=== PATIENT | male | born 1945 | race Caucasian/White ===

== ENCOUNTER 2017-01-29 14:38 | Emergency (ER) | payer OTHER, BC ==
--- NOTE | 2017-01-29 15:06 | ER Document Report ---
ED Medical Screen (RME) - General Chief Complaint: Chest Pain Stated Complaint: CHEST PAIN Time Seen by Provider: 01/29/17 14:58 TRAVEL OUTSIDE OF THE [place] IN LAST 30 DAYS: No - HPI Patient complains to provider of: Left sided chest and neck pain Onset: Last week Onset/Duration: Intermittent Quality of pain: Achy Severity: Moderate Pain Level: 3 Exacerbated by: Food Notes: 01/29/17 15:05 Patient is a 71-year-old male who has a history of hypertension and high cholesterol, who presents to the emergency room complaining of left-sided chest and neck pain that seems to worsen after he eats something, this is been going on for the past week intermittently with waxing and waning symptoms, he denies any shortness of breath, no nausea, vomiting or diarrhea - Related Data Allergies/Adverse Reactions: lidocaine Allergy (Verified 01/29/17 14:52) Past Medical History Renal/ Medical History: Denies: Hx Peritoneal Dialysis Physical Exam - Vital signs Vitals: Temp Pulse Resp BP Pulse Ox 98.0 F 103 H 16 194/91 H 95 01/29/17 14:54 01/29/17 14:54 01/29/17 14:54 01/29/17 14:54 01/29/17 14:54 Course - Vital Signs Vital signs: Temp Pulse Resp BP Pulse Ox 98.0 F 103 H 16 194/91 H 95 01/29/17 14:54 01/29/17 14:54 01/29/17 14:54 01/29/17 14:54 01/29/17 14:54
[2017-01-29 15:51] LABS: ABSOLUTE EOSINOPHILS # (AUTO) 0.2 10^3/uL (0.0-0.6); ABSOLUTE LYMPHOCYTES (AUTO) 1.8 10^3/uL (0.5-4.7); ABSOLUTE MONOCYTES (AUTO) 0.6 10^3/uL (0.1-1.4); ABSOLUTE NEUT (AUTO) 4.9 10^3/uL (1.7-8.2); BASOPHILS % (AUTO) 0.3 % (0-2); EOSINOPHILS % (AUTO) 2.1 % (0-6); HEMATOCRIT 47.5 % (37.9-51.0); HEMOGLOBIN 16.2 g/dL (13.5-17.0); HGB HCT DIFFERENCE 1.1; LYMPHOCYTES % (AUTO) 24.1 % (13-45); MEAN CORPUSCULAR HEMOGLOBIN 30.7 pg (27.0-33.4); MEAN CORPUSCULAR HGB CONC 34.1 g/dL (32.0-36.0); MEAN CORPUSCULAR VOLUME 90 fl (80-97); MONOCYTES % (AUTO) 7.5 % (3-13); RED BLOOD COUNT 5.27 10^6/uL (4.35-5.55); RED CELL DISTRIBUTION WIDTH 13.5 % (11.5-14.0); WHITE BLOOD COUNT 7.5 10^3/uL (4.0-10.5)
--- NOTE | 2017-01-29 15:55 | RADIOLOGY REPORT (SQ) ---
EXAM DESCRIPTION: CHEST PA/LAT COMPLETED DATE/TIME: 01/29/2017 3:41 pm REASON FOR STUDY: cp COMPARISON: None. EXAM PARAMETERS: NUMBER OF VIEWS: two views TECHNIQUE: Digital Frontal and Lateral radiographic views of the chest acquired. RADIATION DOSE: NA LIMITATIONS: none FINDINGS: LUNGS AND PLEURA: No opacities, masses or pneumothorax. No pleural effusion. MEDIASTINUM AND HILAR STRUCTURES: No masses or contour abnormalities. HEART AND VASCULAR STRUCTURES: Heart normal size. No evidence for failure. BONES: No acute findings. HARDWARE: None in the chest. OTHER: No other significant finding. IMPRESSION: NO ACUTE RADIOGRAPHIC FINDING IN THE CHEST. TECHNICAL DOCUMENTATION: JOB ID: [id number] [employer]- All Rights Reserved
[2017-01-29 16:00] LABS: ALANINE AMINOTRANSFERASE 54 U/L (21-72); ALBUMIN 4.9 g/dL (3.5-5.0); ALKALINE PHOSPHATASE 66 U/L (38-126); ANION GAP 17 (5-19); ASPARTATE AMINO TRANSFERASE 26 U/L (17-59); BILIRUBIN,DIRECT 0.3 mg/dL (0.0-0.4); BILIRUBIN,TOTAL 0.8 mg/dL (0.2-1.3); BLOOD UREA NITROGEN 15 mg/dL (7-20); CALCIUM 9.3 mg/dL (8.4-10.2); CARBON DIOXIDE 25 mmol/L (22-30); CHLORIDE 99 mmol/L (98-107); CREATINE KINASE 102 U/L (55-170); CREATININE RESULT 0.85 mg/dL (0.52-1.25); GLUCOSE 239 mg/dL (75-110); LIPASE 81.1 U/L (23-300); POTASSIUM 3.9 mmol/L (3.6-5.0); SODIUM 141.3 mmol/L (137-145)
[2017-01-29 16:12] LABS: CREATINE KINASE MB 2.08 ng/mL (<4.55)
[2017-01-29 16:14] LABS: TROPONIN I 0.106 ng/mL
[2017-01-29] MEDS ORDERED: ASPIRIN 81 MG TABLET, CHEWABLE PO ONE (16:32)
--- NOTE | 2017-01-29 16:48 | ER Document Report ---
ED Cardiac - General Mode of Arrival: Ambulatory Information source: Patient TRAVEL OUTSIDE OF THE [place] IN LAST 30 DAYS: No - HPI Similar symptoms previously: No Recently seen / treated by doctor: No <IRAJ CLEMONS - Last Filed: 01/29/17 17:10> <SHAKA PERDUE - Last Filed: 01/29/17 21:22> - General Chief Complaint: Chest Pain Stated Complaint: CHEST PAIN Time Seen by Provider: 01/29/17 14:58 Notes: Patient is a 71 year old male presenting to the ED for left sided chest pain, neck pain and shoulder pain. Patient states he has had this pain intermittently over the last week and states his episode today started around 13:00. Patient denies any shortness of breath, nausea, vomiting, or diarrhea. Patient states his pain gets worse with eating. Patient also states he has had some weakness. Patient has a history of arrythmia at age 36, hypertension, and hypercholesterolemia. Patient is allergic to lidocaine. Patient's primary care physician is Dr. Baez. Patient's movie shot cameraman is Dr. Keys. (IRAJ CLEMONS) - Related Data Allergies/Adverse Reactions: lidocaine Allergy (Verified 01/29/17 14:52) Home Medications: Current Home Medications Amlodipine Besylate 5 mg PO DAILY 01/29/17 [History] Irbesartan/Hydrochlorothiazide [Irbesartan-Hctz 300-12.5 mg Tb] 1 each PO DAILY 01/29/17 [History] Pravastatin Sodium 20 mg PO DAILY 01/29/17 [History] Past Medical History - General Information source: Patient - Social History Smoking Status: Former Smoker Chew tobacco use (# tins/day): No Frequency of alcohol use: None Drug Abuse: None Family History: None Patient has suicidal ideation: No Patient has homicidal ideation: No - Past Medical History Cardiac Medical History: Reports: Hx Hypercholesterolemia, Hx Hypertension Surgical Hx: Negative <IRAJ CLEMONS - Last Filed: 01/29/17 17:10> Review of Systems - Review of Systems Constitutional: No symptoms reported EENT: No symptoms reported Cardiovascular: See HPI, Chest pain Respiratory: No symptoms reported Gastrointestinal: No symptoms reported Genitourinary: No symptoms reported Male Genitourinary: No symptoms reported Musculoskeletal: See HPI Skin: No symptoms reported Hematologic/Lymphatic: No symptoms reported Neurological/Psychological: No symptoms reported -: Yes All other systems reviewed and negative <IRAJ CLEMONS - Last Filed: 01/29/17 17:10> Physical Exam - Vital signs Interpretation: Hypertensive, Tachycardic <IRAJ CLEMONS - Last Filed: 01/29/17 17:10> <SHAKA PERDUE - Last Filed: 01/29/17 21:22> - Vital signs Vitals: Temp Pulse Resp BP Pulse Ox 98.0 F 103 H 16 194/91 H 95 01/29/17 14:54 01/29/17 14:54 01/29/17 14:54 01/29/17 14:54 01/29/17 14:54 - Notes Notes: GENERAL: Alert, interacts well, hypertensive. Mild distress. HEAD: Normocephalic, atraumatic. EYES: Appear normal. Pupils equal, round, and reactive to light. ENT: Moist mucus membranes, tongue midline. NECK: Full range of motion. Supple. Trachea midline. LUNGS: Clear to auscultation bilaterally, no wheezes, rales, or rhonchi. No respiratory distress. HEART: Regular chen and rhythm. No murmurs, gallops, or rubs. ABDOMEN: Soft, non-tender. Non-distended. Normal bowel sounds. EXTREMITIES: Moves all 4 extremities spontaneously. Normal strength. No edema. NEUROLOGICAL: Alert and oriented x3. Normal speech. No focal neurological deficits. GSC 15. PSYCH: Normal affect, anxious. SKIN: Warm, dry, normal turgor. No rashes or lesions noted. (ROBERTIRAJ GASPAR) Course - Laboratory Result Diagrams: 01/29/17 15:21 01/29/17 15:21 <IRAJ CLEMONS - Last Filed: 01/29/17 17:10> - Laboratory Result Diagrams: 01/29/17 15:21 01/29/17 15:21 - Diagnostic Test Radiology reviewed: Image reviewed, Reports reviewed - Chest x-ray does not show any acute finding - EKG Interpretation by Ak EKG shows normal: Sinus rhythm, [place], Intervals, QRS Complexes. abnormal: ST-T Waves - ST depression suggests posterior infarct Rate: Tachycardia - 100 - Consults Dr. Lyons Time consulted: 19:25 Consulted provider: other - Will accept in transfer at [facility]. <SHAKA PERDUE - Last Filed: 01/29/17 21:22> - Re-evaluation Re-evalutation: 01/29/17 17:25 The patient was given 1 sublingual nitroglycerin at 1652, did not seem to make much difference, is given a second 1 about 1700, it also did not seem to help much. First dose of Lopressor 5 mg IV helped a little bit, the second dose of Lopressor 5 mg IV seem to have completely relieved the severe aching in his neck that he was feeling. 01/29/17 19:35 The patient continues to be pain-free. He has been accepted at [facility] by Dr. Lyons. His blood glucose was elevated to 239, a hemoglobin A1c was done a reading of 7.7 showing that the patient does additionally have diabetes. 01/29/17 21:22 Transport is here for the patient. His vital signs are stable. He is pain- free. He is smiling and laughing with his family at this time. He is again thanking me for all we did for him to help relieve his discomfort. (SHAKA PERDUE) - Vital Signs Vital signs: Temp Pulse Resp BP Pulse Ox 98.0 F 103 H 11 L 160/96 H 96 01/29/17 14:54 01/29/17 14:54 01/29/17 21:10 01/29/17 21:10 01/29/17 21:10 - Laboratory Laboratory results interpreted by me: 01/29/17 01/29/17 01/29/17 15:21 15:21 15:21 Plt Count 146 L Glucose 239 H Hemoglobin A1c % 7.7 H Urine Protein Urine Glucose (UA) Urine Ascorbic Acid 01/29/17 18:05 Plt Count Glucose Hemoglobin A1c % Urine Protein 100 H Urine Glucose (UA) 50 H Urine Ascorbic Acid 20 H Critical Care Note - Critical Care Note Total time excluding time spent on procedures (mins): 45 <SHAKA PERDUE - Last Filed: 01/29/17 21:22> Discharge <IRAJ CLEMONS - Last Filed: 01/29/17 17:10> <SHAKA PERDUE - Last Filed: 01/29/17 21:22> - Discharge Clinical Impression: Non-STEMI (non-ST elevated myocardial infarction) Hypertension Qualifiers: Hypertension type: essential hypertension Qualified Code(s): I10 - Essential ( primary) hypertension Diabetes Qualifiers: Diabetes mellitus type: type 2 Diabetes mellitus complication status: without complication Diabetes mellitus usp insulin use: without usp use Qualified Code(s): E11.9 - Type 2 diabetes mellitus without complications Condition: Good Disposition: JULIO MARTINEZ Kevin Attestation: 01/29/17 18:30 I personally performed the services described in the documentation, reviewed and edited the documentation which was dictated to the scribe in my presence, and it accurately records my words and actions. (SHAKA PERDUE) Scribe Documentation - Scribe Written by Kevin:: Kevin Lujan 01/29/2017 17:17 acting as scribe for :: Gary <IRAJ CLEMONS - Last Filed: 01/29/17 17:10>
[2017-01-29] MEDS ORDERED: METOPROLOL TARTRATE PF/INJ 5 MG/5 ML SDV IV ONE ×4 (16:54→17:26)
[2017-01-29] MEDS ORDERED: NORMAL SALINE 1000 ML 1,000 ML IV ONE (16:54)
[2017-01-29] MEDS ORDERED: NITROGLYCERIN 2% OINTMENT 1 GM PACKET TP ONE (17:21)
[2017-01-29] MEDS ORDERED: CLOPIDOGREL BISULFATE 300 MG TABLET PO ONE (17:23)
[2017-01-29] MEDS ORDERED: HEPARIN SOD (PORCINE) 1,000 UNIT/ML 10 ML VIAL IV PRN (17:24)
[2017-01-29] MEDS ORDERED: HEPARIN SODIUM,PORCINE/D5W 250 ML IV PRN (17:24)
[2017-01-29] MEDS ORDERED: HEPARIN SOD (PORCINE) 1,000 UNIT/ML 10 ML VIAL IV ONE (17:24)
[2017-01-29] MEDS ORDERED: ATORVASTATIN CALCIUM 80 MG TABLET PO ONE (17:28)
[2017-01-29 18:17] LABS: PROTHROMBIN TIME 12.8 SEC (11.4-15.4)
[2017-01-29 18:18] LABS: PARTIAL THROMBOPLASTIN TIME 28.1 SEC (23.5-35.8)
[2017-01-29 18:47] LABS: APPEARANCE,URINE CLEAR; BILIRUBIN,URINE NEGATIVE (NEGATIVE); GLUCOSE, URINE 50 mg/dL (NEGATIVE); KETONES,URINE NEGATIVE (NEGATIVE); LEUKOCYTE ESTERASE,URINE NEGATIVE (NEGATIVE); NITRITE,URINE NEGATIVE (NEGATIVE); PROTEIN,URINE 100 mg/dL (NEGATIVE); URINE SPECIFIC GRAVITY 1.017; UROBILINOGEN,URINE NEGATIVE mg/dL (<2.0)
[2017-01-29] MEDS ORDERED: METOPROLOL TARTRATE 50 MG TABLET PO ONE (18:57)
[2017-01-29 21:18] VITALS: BP 160/96
--- NOTE | 2017-01-30 03:38 | EKG REPORT ---
SEVERITY:- NORMAL ECG - SINUS RHYTHM : Confirmed by: Rocio Vines MD 30-Jan-2017 03:37:07
--- NOTE | 2017-01-30 03:38 | EKG REPORT ---
SEVERITY:- NORMAL ECG - SINUS TACHYCARDIA : Confirmed by: Rocio Vines MD 30-Jan-2017 03:37:29
== END 2017-01-29 21:43 | disposition short-term general hospital (02) ==
LOC: ER 14:38
DX: I21.4 Non-ST elevation (NSTEMI) myocardial infarction (principal); I10 Essential (primary) hypertension; E11.65 Type 2 diabetes mellitus with hyperglycemia; R07.9 Chest pain, unspecified; M54.2 Cervicalgia; M25.519 Pain in unspecified shoulder; R53.1 Weakness; Z88.4 Allergy status to anesthetic agent; Z87.891 Personal history of nicotine dependence
CPT/HCPCS: 93005; 96376; 99291; 96374; 96375; 36415; 82553; 82550; 83690; 85025; 85610; 85730; 80053; 81001; 84484; 83036; 71020; 93010; J3490 ×2; J1644 ×2; J7030

== ENCOUNTER 2019-02-09 09:47 | Emergency (ER) | payer OTHER, BC ==
[2019-02-09] MEDS ORDERED: LIDOCAINE 1% INJ-PF (10 MG/ML) 30 ML SDV INJ ONE (10:05)
--- NOTE | 2019-02-09 10:12 | ER Document Report ---
ED Medical Screen (RME) - General Chief Complaint: Laceration Stated Complaint: FINGER LACERATION Time Seen by Provider: 02/09/19 09:59 Notes: Patient is a 73-year-old male who presents to the emergency department with a laceration to his left thumb. He was working with a chop saw about 30 minutes ago and his finger got caught by the chop saw. The patient is right-handed. He is currently on Plavix. Exam: Avulsion/laceration to patient's left thumb/finger nail. I have greeted and performed a rapid initial assessment of this patient. A comprehensive ED assessment and evaluation of the patient, analysis of test results and completion of medical decision making process will be conducted by an additional ED providers. TRAVEL OUTSIDE OF THE [place] IN LAST 30 DAYS: No - Related Data Allergies/Adverse Reactions: lidocaine Allergy (Verified 02/09/19 09:54) Past Medical History - Social History Frequency of alcohol use: None Drug Abuse: None - Past Medical History Cardiac Medical History: Reports: Hx Congestive Heart Failure, Hx Heart Attack, Hx Hypercholesterolemia, Hx Hypertension Renal/ Medical History: Denies: Hx Peritoneal Dialysis Musculoskeltal Medical History: Reports Hx Arthritis Past Surgical History: Reports: Hx Cardiac Catheterization, Hx Cholecystectomy Physical Exam - Vital signs Vitals: Temp Pulse Resp BP Pulse Ox 98.1 F 97 20 135/76 H 95 02/09/19 09:52 02/09/19 09:52 02/09/19 09:52 02/09/19 09:52 02/09/19 09:52 Course - Vital Signs Vital signs: Temp Pulse Resp BP Pulse Ox 98.1 F 97 20 135/76 H 95 02/09/19 09:52 02/09/19 09:52 02/09/19 09:52 02/09/19 09:52 02/09/19 09:52
[2019-02-09] MEDS ORDERED: DIPH/PERTUSS(ACELL)/TETANUS VAC/PF 0.5 ML SYR (>=10YO) IM ONE (10:27)
--- NOTE | 2019-02-09 10:37 | RADIOLOGY REPORT (SQ) ---
EXAM DESCRIPTION: FINGER LEFT COMPLETED DATE/TIME: 02/09/2019 10:26 am REASON FOR STUDY: laceration COMPARISON: None. EXAM PARAMETERS: NUMBER OF VIEWS: Three views. TECHNIQUE: AP, lateral and oblique radiographic images acquired of the left hand. LIMITATIONS: None. FINDINGS: MINERALIZATION: Normal. BONES: No acute fracture or dislocation. Severe arthrosis in the 1st carpometacarpal joint. JOINTS: No effusion. SOFT TISSUES: Moderate soft tissue swelling. No radiopaque foreign body. OTHER: No other significant finding. IMPRESSION: NO FRACTURE. TECHNICAL DOCUMENTATION: JOB ID: [id number] [employer]- All Rights Reserved Reading location - IP/workstation name: [email or web address]
--- NOTE | 2019-02-09 10:38 | ER Document Report ---
ED General - General Chief Complaint: Laceration Stated Complaint: FINGER LACERATION Time Seen by Provider: 02/09/19 09:59 TRAVEL OUTSIDE OF THE [place] IN LAST 30 DAYS: No - HPI Notes: Patient is a 73-year-old male who presents to the emergency department for evaluation after sustaining an injury to his left thumb. He is right-hand dominant. He is using a chop saw, personally 30 minutes prior to arrival, when he cut his left thumb. He is unsure as to when his last tetanus shot was. He describes a throbbing and aching pain that he currently rates at a 3 out of 5. - Related Data Allergies/Adverse Reactions: lidocaine Allergy (Verified 02/09/19 09:54) Past Medical History - General Information source: Patient - Social History Smoking Status: Never Smoker Frequency of alcohol use: None Drug Abuse: None Family History: None, Reviewed & Not Pertinent Patient has suicidal ideation: No Patient has homicidal ideation: No - Past Medical History Cardiac Medical History: Reports: Hx Congestive Heart Failure, Hx Coronary Artery Disease, Hx Heart Attack, Hx Hypercholesterolemia, Hx Hypertension Renal/ Medical History: Denies: Hx Peritoneal Dialysis Musculoskeletal Medical History: Reports Hx Arthritis Past Surgical History: Reports: Hx Cardiac Catheterization, Hx Cholecystectomy Review of Systems - Review of Systems Constitutional: No symptoms reported EENT: No symptoms reported Cardiovascular: No symptoms reported Respiratory: No symptoms reported Gastrointestinal: No symptoms reported Genitourinary: No symptoms reported Musculoskeletal: No symptoms reported Skin: See HPI Neurological/Psychological: No symptoms reported Physical Exam - Vital signs Vitals: Temp Pulse Resp BP Pulse Ox 98.1 F 97 20 135/76 H 95 02/09/19 09:52 02/09/19 09:52 02/09/19 09:52 02/09/19 09:52 02/09/19 09:52 - Notes Notes: Is a very pleasant 73-year-old gentleman appears his stated age in no acute distress. Physical exam is limited to the area of chief complaint. Examination of the left upper extremity yields extensive 5 cm laceration that begins proximal to the nailbed and wraps around the radial aspect of the thumb to the palmar aspect. He has full range of motion at the MCP and IP. Sensation intact to the distal tip. Course - Re-evaluation Re-evalutation: 02/09/19 10:36 Patient presents emergency department for evaluation. His tetanus is updated. X-ray is ordered. No clear fracture, awaiting radiology read. Will perform digital block, then thorough cleansing and closing of the wound. - Vital Signs Vital signs: Temp Pulse Resp BP Pulse Ox 98.3 F 77 16 115/68 97 02/09/19 12:08 02/09/19 12:08 02/09/19 12:08 02/09/19 12:08 02/09/19 12:08 Procedures - Laceration/Wound Repair Left Thumb Time completed: 11:20 Wound length (cm): 5 Wound's Depth, Shape: Irregular, Nail-avulsed Laceration pre-procedure: Sterile drapes applied, Shur-Clens applied Anesthetic type: 1% Lidocaine Volume Anesthetic (mLs): 6 Wound explored: Clean, No foreign body removed Irrigated w/ Saline (mLs): 50 Wound Repaired With: Sutures Suture Size/Type: 5:0 - 9, 4:0 - 3 Number of Sutures: 12 Layer Closure?: No Post-procedure wound care: Sterile dressing applied Post-procedure NV exam normal: Yes Complications: No Discharge - Discharge Clinical Impression: Laceration of left thumb with damage to nail Qualifiers: Encounter type: initial encounter Foreign body presence: without foreign body Qualified Code(s): S61.112A - Laceration without foreign body of left thumb with damage to nail, initial encounter Condition: Stable Disposition: HOME, SELF-CARE Instructions: Antibiotic Ointment Protection ([facility]), Laceration Care ([facility]), Prophylactic Antibiotic ([facility]), Soap Cleansing ([facility]), Tetanus Immunization Given ([facility]) Additional Instructions: Keep wound clean with soap and water. Protect from getting dirty, avoid submerging in water. Take antibiotic as prescribed. Have wound recheck in 2 to 3 days. If you develop increased pain, drainage, fevers, vomiting, or any other new or concerning symptoms, return immediately to the emergency department for reevaluation. Prescriptions: RX: Cephalexin Monohydrate [Keflex 500 mg Capsule] 500 mg PO TID #21 capsule
[2019-02-09 12:17] VITALS: BP 115/68
== END 2019-02-09 12:19 | disposition home or self-care (01) ==
LOC: ER 09:47
DX: S61.012A Laceration without foreign body of left thumb without damage to nail, initial encounter (principal); W27.0XXA Contact with workbench tool, initial encounter; I50.9 Heart failure, unspecified; I25.10 Atherosclerotic heart disease of native coronary artery without angina pectoris; E78.00 Pure hypercholesterolemia, unspecified; I11.0 Hypertensive heart disease with heart failure; Z23 Encounter for immunization; Z90.49 Acquired absence of other specified parts of digestive tract; I25.2 Old myocardial infarction
CPT/HCPCS: 99283; 90471; 73140; 90715; 12002; J3490

== ENCOUNTER 2020-04-07 08:49 | Day surgery (SDC) | payer MEDICARE, BC ==
[~2020-04-07 08:49] MED LIST: BUPIVACAINE HCL 0.75% INJ/PF (7.5 MG/1 ML) 10 ML SDV OS PRN; CHONDR SU A NA/HYALUR INTRAOC KIT (SURGICARE) ONE; EPINEPHRINE INJ/PF 1 MG/1 ML AMPULE ONE; KETOROLAC TROMETHAMINE 0.45% 4 DROP/0.4 ML DROPERETTE OS PRN; LIDOCAINE 1% INJ-PF (10 MG/ML) 30 ML SDV ONE; LIDOCAINE 4% INJ/PF (40 MG/ML) 5 ML AMPUL OS PRN
[2020-04-07] MEDS: TROPICAMIDE 1% OPH SOLN 15 ML OS PRN ×3 (09:08→09:29)
[2020-04-07] MEDS: TETRACAINE HCL 0.5% OPH SOLN 4 ML OS PRN ×3 (09:08→09:42)
[2020-04-07] MEDS: CYCLOPENTOLATE 0.2%/PHENYLEPHRINE 1% OPH SOLN 2 ML OS PRN ×3 (09:09→09:29)
[2020-04-07] MEDS: BESIFLOXACIN HCL 0.6% OPH SUSP 5 ML BOTTLE OS PRN ×5 (09:09→10:17)
[2020-04-07] MEDS ORDERED: MIDAZOLAM 2 MG/2 ML INJ ONE (09:24)
[2020-04-07] MEDS: DORZOLAMIDE HCL 2%/TIMOLOL MALEAT 0.5% OPH SOLN 10 ML OS PRN ×3 (10:14→10:17)
[2020-04-07] MEDS: PREDNISOLONE ACETATE 1% OPH SUSP 5 ML OS PRN ×3 (10:14→10:17)
--- NOTE | 2020-04-07 13:25 | Operative Report ---
Operative Report-[facility] Operative Report: DATE OF SURGERY: 04/07/2020 PREOPERATIVE DIAGNOSIS: CATARACT, LEFT EYE. POSTOPERATIVE DIAGNOSIS: CATARACT, LEFT EYE. PROCEDURE PERFORMED: PHACOEMULSIFICATION WITH TORIC POSTERIOR CHAMBER INTRAOCULAR LENS, LEFT EYE. Intraocular Lens Model : [id number] 22.0 Total Phaco Time: 7.55 CDE SURGEON: RAINER NARANJO MD ANESTHESIA: TOPICAL WITH MAC. INDICATIONS FOR SURGERY: Difficulty with night driving PROCEDURE: The patient was brought to the Operating Room and placed in a seated position. a lid speculum was placed in the eye. the 0.180, and 270 degree axis of the cornea was marked with a toric marker. the patien was place in a reclining position. Following tetracaine drops, topical anesthesia was administered. This consisted of instrument wipe pledgets soaked in a solution of 4% Xylocaine mixed with 0.75% Marcaine in a 1:2 ratio. A 2 x 1 cm pledget was placed in the superior fornix. A 1 x 1 cm pledget was placed in the inferior fornix. The eye was patched shut for 5 minutes. The patch was removed. The eye was sterilely prepped and draped in the usual manner. Lid speculum was placed in the eye. The pledgets were removed. 4-0 black silk sutures were placed around the superior and the inferior rectus muscles to be used as traction. A conjunctival peritomy was made at the 10 o'clock position. Hemostasis was obtained with bipolar cautery. A posterior limbal groove was created using a crescent knife and dissected anteriorly towards the cornea. A sharp point blade was used to create a paracentesis site at the 2 o'clock position. 0.2 cc non preserved Lidocaine was injected into the anterior chamber. A 2.4 mm keratome was used to enter the anterior chamber through the groove. Viscoelastic was injected into the anteriorchamber. An anterior capsulotomy was performed using Utrata forceps in acapsulorrhexis fashion. Hydrodissection and hydrodelineation were performed. Phacoemulsification was performed in [id number] technique. Following this, the I/A unit was used to remove residual cortex. Viscoelastic was injected into the capsular bag. The Intraocular lens was placed in the capsu lar bag. The 172 degree axis of the eye was marked using a toric marker and the previously marked sites as reference. The lens was centered at this axis. The I/A unit was used to remove residual viscoelastic. The wound was seen to be watertight under high and low pressure, and no sutures were placed. The intraocular lens was well centered. The pressure was adjusted in the eye to normal pressure. The 4-0 black silk sutures and lid speculum were removed. The eye was shielded after Besivance and Cosopt drops were placed. The patient tolerated the procedure well and was sent to the Recovery Room in good condition.
== END 2020-04-07 10:50 | disposition home or self-care (01) ==
LOC: SC 08:49
PROVIDERS: ATTEND Ophthalmology
DX: H25.812 Combined forms of age-related cataract, left eye (principal); H17.89 Other corneal scars and opacities; H04.123 Dry eye syndrome of bilateral lacrimal glands; I10 Essential (primary) hypertension; I25.2 Old myocardial infarction; E78.00 Pure hypercholesterolemia, unspecified; Z87.891 Personal history of nicotine dependence; E66.9 Obesity, unspecified
CPT/HCPCS: 66984; V2787; J2250; J3490 ×5; A9270; J0171

== ENCOUNTER 2020-04-28 06:59 | Day surgery (SDC) | payer MEDICARE, BC ==
[~2020-04-28 06:59] MED LIST changes: +BUPIVACAINE HCL 0.75% INJ/PF (7.5 MG/1 ML) 10 ML SDV OD PRN; -BUPIVACAINE HCL 0.75% INJ/PF (7.5 MG/1 ML) 10 ML SDV OS PRN; -CHONDR SU A NA/HYALUR INTRAOC KIT (SURGICARE) ONE; -EPINEPHRINE INJ/PF 1 MG/1 ML AMPULE ONE; +KETOROLAC TROMETHAMINE 0.45% 4 DROP/0.4 ML DROPERETTE OD PRN; -KETOROLAC TROMETHAMINE 0.45% 4 DROP/0.4 ML DROPERETTE OS PRN; -LIDOCAINE 1% INJ-PF (10 MG/ML) 30 ML SDV ONE; +LIDOCAINE 4% INJ/PF (40 MG/ML) 5 ML AMPUL OD PRN; -LIDOCAINE 4% INJ/PF (40 MG/ML) 5 ML AMPUL OS PRN
[2020-04-28] MEDS ORDERED: LIDOCAINE 1% INJ-PF (10 MG/ML) 30 ML SDV ONE (07:17)
[2020-04-28] MEDS ORDERED: CHONDR SU A NA/HYALUR INTRAOC KIT (SURGICARE) ONE (07:17)
[2020-04-28] MEDS ORDERED: EPINEPHRINE INJ/PF 1 MG/1 ML AMPULE ONE (07:17)
[2020-04-28] MEDS: CYCLOPENTOLATE 0.2%/PHENYLEPHRINE 1% OPH SOLN 2 ML OD PRN ×3 (07:20→07:40)
[2020-04-28] MEDS: TROPICAMIDE 1% OPH SOLN 15 ML OD PRN ×3 (07:20→07:40)
[2020-04-28] MEDS: BESIFLOXACIN HCL 0.6% OPH SUSP 5 ML BOTTLE OD PRN ×4 (07:20→08:32)
[2020-04-28] MEDS: TETRACAINE HCL 0.5% OPH SOLN 4 ML OD PRN ×2 (07:20→07:46)
[2020-04-28] MEDS ORDERED: MIDAZOLAM 2 MG/2 ML INJ ONE (07:21)
[2020-04-28] MEDS ORDERED: FENTANYL CITRATE INJ/PF 100 MCG/2 ML AMPUL ONE (07:21)
[2020-04-28] MEDS: PREDNISOLONE ACETATE 1% OPH SUSP 5 ML OD PRN ×2 (08:32)
[2020-04-28] MEDS: DORZOLAMIDE HCL 2%/TIMOLOL MALEAT 0.5% OPH SOLN 10 ML OD PRN ×2 (08:32)
--- NOTE | 2020-04-28 12:02 | Operative Report ---
Operative Report-[facility] Operative Report: DATE OF SURGERY: 04/28/2020 PREOPERATIVE DIAGNOSIS: CATARACT, RIGHT EYE. POSTOPERATIVE DIAGNOSIS: CATARACT,RIGHT EYE. PROCEDURE PERFORMED: PHACOEMULSIFICATION WITH TORIC POSTERIOR CHAMBER INTRAOCULAR LENS, RIGHT EYE. Intraocular Lens Model : [id number] 22.5 Total Phaco Time: 5.68 CDE SURGEON: RAINER NARANJO MD ANESTHESIA: TOPICAL WITH MAC. INDICATIONS FOR SURGERY: Difficulty with night driving PROCEDURE: The patient was brought to the Operating Room and placed in a seated position. a lid speculum was placed in the eye. the 0.180, and 270 degree axis of the cornea was marked with a toric marker. the patien was place in a reclining position. Following tetracaine drops, topical anesthesia was administered. This consisted of instrument wipe pledgets soaked in a solution of 4% Xylocaine mixed with 0.75% Marcaine in a 1:2 ratio. A 2 x 1 cm pledget was placed in the superior fo rnix. A 1 x 1 cm pledget was placed in the inferior fornix. The eye was patched shut for 5 minutes. The patch was removed. The eye was sterilely prepped and draped in the usual manner. Lid speculum was placed in the eye. The pledgets were removed. 4-0 black silk sutures were placed around the superior and the inferior rectus muscles to be used as traction. A conjunctival peritomy was made at the 10 o'clock position. Hemostasis was obtained with bipolar cautery. A posterior limbal groove was created using a crescent knife and dissected anteriorly towards the cornea. A sharp point blade was used to create a paracentesis site at the 2 o'clock position. 0.2 cc non preserved Lidocaine was injected into the anterior chamber. A 2.4 mm keratome was used to enter the anterior chamber through the groove. Viscoelastic was injected into the anteriorchamber. An anterior capsulotomy was performed using Utrata forceps in acapsulorrhexis fashion. Hydrodissection and hydrodelineation were performed. Ph acoemulsification was performed in [id number] technique. Following this, the I/A unit was used to remove residual cortex. Viscoelastic was injected into the capsular bag. The Intraocular lens was placed in the capsular bag. The 10 degree axis of the eye was marked using a toric marker and the previously marked sites as reference. The lens was centered at this axis. The I/A unit was used to remove residual viscoelastic. The wound was seen to be watertight under high and low pressure, and no sutures were placed. The intraocular lens was well centered. The pressure was adjusted in the eye to normal pressure. The 4-0 black silk sutures and lid speculum were removed. The eye was shielded after Besivance and Cosopt drops were placed. The patient tolerated the procedure well and was sent to the Recovery Room in good condition.
== END 2020-04-28 09:11 | disposition home or self-care (01) ==
LOC: SC 06:59
PROVIDERS: ATTEND Ophthalmology
DX: H25.811 Combined forms of age-related cataract, right eye (principal); Z96.1 Presence of intraocular lens; I10 Essential (primary) hypertension; I25.2 Old myocardial infarction; E78.00 Pure hypercholesterolemia, unspecified; Z87.891 Personal history of nicotine dependence; E66.9 Obesity, unspecified
CPT/HCPCS: 66984; V2787; J2250; J3490 ×5; A9270; J0171; J3010; 142